=== PATIENT | male | born 1995 | race Caucasian/White ===

== ENCOUNTER 2019-11-11 11:11 | Emergency (ER) | payer OTHER ==
[~2019-11-11] VITALS: Ht 177.8 cm; Wt 86.3 kg
[2019-11-11] MEDS ORDERED: KETOROLAC 60 MG/2 ML VIAL (J1885) IM ONE (12:15)
[2019-11-11] MEDS ORDERED: LIDOCAINE 5% (LIDODERM) PATCH TD ONE (12:15)
[2019-11-11] MEDS ORDERED: ACETAMINOPHEN 325 MG TAB PO ONE (12:15)
--- NOTE | 2019-11-11 12:44 | REP ---
Clinical: Chronic nonacute thoracic pain. Technique: AP, lateral, and swimmers views. Findings: Alignment and kyphosis is maintained. Vertebral bodies intact. No acute fracture / compression injury or subluxation. No degenerative changes. Paravertebral soft tissues are normal. Impression: Normal thoracic spine series. Electronically Signed by Tawanda Raza MD 11/11/2019 12:36 P
--- NOTE | 2019-11-11 12:45 | REP ---
Clinical: Chronic nonacute back pain . Technique: AP, lateral, bilateral oblique, and coned-down views. Findings: Alignment and lordosis is maintained. The vertebral bodies including transverse process and spinous processes are intact and normal. There is no evidence for acute fracture / compression injury or subluxation. No evidence for spondylolysis or spondylolisthesis. No significant degenerative change is noted. Impression: Normal lumbosacral spine radiograph series. Electronically Signed by Tawanda Raza MD 11/11/2019 12:37 P
[2019-11-11] MEDS ORDERED: KETO10TAB PO (12:55)
[2019-11-11] MEDS ORDERED: CYCL10TA PO (12:55)
[2019-11-11 13:06] VITALS: BP 120/75
[2019-11-11] MEDS ORDERED: **NOTE PATIENT COMMENT** MISC XX SCH (21:00)
== END 2019-11-11 13:08 | disposition home or self-care (01) ==
LOC: M ED 11:11
DX: M54.5 Low back pain (principal)
CPT/HCPCS: 72072; 72110; 96372; 99283; J1885